=== PATIENT | male | born 1965 | race African-American/Black ===

== ENCOUNTER 2018-02-26 13:49 | Emergency (ER) | payer MEDICARE ==
[~2018-02-26] VITALS: Ht 165.1 cm; Wt 79.8 kg
[2018-02-26 14:00] VITALS: BP 156/90
--- NOTE | 2018-02-26 14:28 | PHYS DOC ---
Adult General Chief Complaint Chief Complaint: FINGER INJURY HPI HPI Patient is a 52 year old M who states that about 8 days ago he was taking laundry out of the washer and his R index finger was hyperextended and he has had pain in the finger every since with decreased ROM. He did invest in a finger splint that he has been wearing and states the ROM has improved some but since he was bringing his daughter in today for evaluation of her ankle, he decided to be seen. Review of Systems Review of Systems Constitutional: Denies fever or chills Respiratory: Denies cough or shortness of breath Cardiovascular: Denies chest pain GI: Denies abdominal pain, nausea, vomiting, bloody stools or diarrhea Musculoskeletal: Denies back pain. Reports R index finger pain Integument: Denies rash or skin lesions Neurologic: Denies headache, focal weakness or sensory changes All other systems were reviewed and found to be within normal limits, except as documented in this note. Allergies Allergies Allergies Coded Allergies Type Severity Reaction Last Updated Verified duloxetine Adverse Reaction Intermediate TREMORS, RAPID HEART RATE 02/26/18 Yes Physical Exam Physical Exam Constitutional: Well developed, well nourished, no acute distress, non-toxic appearance. Neck: Normal range of motion, no tenderness, supple, no stridor. Cardiovascular:Heart rate regular rhythm, no murmur Lungs & Thorax: Bilateral breath sounds clear to auscultation Abdomen: Bowel sounds normal, soft, no tenderness, no masses, no pulsatile masses. Skin: Warm, dry, no erythema, no rash. No contusion or erythema noted Back: No tenderness, no CVA tenderness. Extremities: R index finger pain with flexion. No deformity noted and pt can flex to about 40 degrees but then states he cannot flex further. Pulses intact, normal cap refill. Neurologic: Alert and oriented X 3, normal sensory function, no focal deficits noted. Psychologic: Affect normal, judgement normal, mood normal. Current Patient Data Vital Signs Vital Signs Date Time Temp Pulse Resp B/P (MAP) Pulse Ox O2 Delivery O2 Flow Rate FiO2 02/26/18 14:00 98.1 72 18 156/90 (112) 99 Room Air 98.1 EKG EKG [] Radiology/Procedures Radiology/Procedures Xray neg for acute osseous injury Impressions: Discussed with pt that I am concerned about a tendon injury to his R index finger with his decreased ROM. Pt placed in alumifoam splint and he was provided with ortho name and number and recommended to call for close follow up. Pt is R hand dominant and I stress importance of f/u to ensure use of his hand in future. Course & Med Decision Making Course & Med Decision Making Pertinent Labs and Imaging studies reviewed. (See chart for details) [] Dragon Disclaimer Dragon Disclaimer This electronic medical record was generated, in whole or in part, using a voice recognition dictation system. Departure Departure Impression: Primary Impression: Sprain of index finger Additional Impression: Ligament laxity Disposition: 01 HOME, SELF-CARE Condition: STABLE Referrals: DENISE RAYMOND MD Patient Instructions: Finger Sprain, [id number] Additional Instructions: finger splint, ice, rest Scripts Naproxen (NAPROSYN) 500 Mg Tablet 1 TAB PO BID, #20 TAB 1 Refill Prov: JESSI MAURICIO 02/26/18 Problem Qualifiers JESSI MAURICIO Feb 26, 2018 14:28
--- NOTE | 2018-02-26 14:57 | RAD ---
Examination: HAND RIGHT 3V History: right hand pain x1 week after lifting heavy object Comparison/Correlation: None Findings: Total 3 images of the right hand were obtained. Joint spaces are normal. No acute fracture or bone destruction. Soft tissues are normal. Bony mineralization is adequate. Impression: Normal right hand 3 view x-ray exam. Electronically signed by: Ken Bunn MD (02/26/2018 2:53 PM) [facility]
[2018-02-26] MEDS ORDERED: NAPR-683 PO (14:59)
== END 2018-02-26 15:25 | disposition home or self-care (01) ==
LOC: ER 13:49
DX: S63.690A Other sprain of right index finger, initial encounter (principal); M24.241 Disorder of ligament, right hand; Z88.8 Allergy status to other drugs, medicaments and biological substances; X50.1XXA Overexertion from prolonged static or awkward postures, initial encounter; Y93.E2 Activity, laundry; Y92.89 Other specified places as the place of occurrence of the external cause; Y99.8 Other external cause status
CPT/HCPCS: 73130; 99284

== ENCOUNTER 2018-03-13 05:14 | Emergency (ER) | payer MEDICARE ==
[~2018-03-13] VITALS: Ht 167.6 cm; Wt 79.8 kg
[~2018-03-13 05:14] MED LIST: NAPR-683 PO
--- NOTE | 2018-03-13 05:18 | PHYS DOC ---
Past Medical History Past Medical History: Diabetes-Type II, Unknown Additional Past Medical Histor: PTSD,NEUROPATHY Past Surgical History: Appendectomy Alcohol Use: None Drug Use: None Adult General Chief Complaint Chief Complaint: SKIN RASH/ABSCESS [facility] HPI Patient is a 53 year old male who presents with rash over left side of neck. He has had symptoms over the last 2 days. No fever or chills. No headaches. Denies prior history of similar symptoms. The patient does shave very frequently. He denies that he has ever had problems with pseudo-folliculitis. Review of Systems Review of Systems Constitutional: Denies fever Eyes: Denies change in visual acuity HENT: Denies nasal congestion Respiratory: Denies cough or shortness of breath Cardiovascular: No additional information not addressed in HPI GI: Denies abdominal pain Musculoskeletal: Denies back pain Integument: as documented above Neurologic: Denies headache All other systems were reviewed and found to be within normal limits, except as documented in this note. Allergies Allergies Allergies Coded Allergies Type Severity Reaction Last Updated Verified duloxetine Adverse Reaction Intermediate TREMORS, RAPID HEART RATE 02/26/18 Yes Physical Exam Physical Exam Constitutional: Well developed, well nourished, no acute distress HENT: Normocephalic, atraumatic, bilateral external ears normal Eyes: PERRLA, EOMI Neck: Normal range of motion Cardiovascular:Heart rate regular rhythm, no murmur Lungs & Thorax: Bilateral breath sounds clear to auscultation Skin: Warm, dry, no erythema, cluster of excoriated papules, now more ulcerated appearing lesions on erythematous base over left side of neck, quesada line. Additional lesions on skin over left clavicle. no vesicles Neurologic: Alert and oriented X 3 Psychologic: Affect normal Current Patient Data Vital Signs Vital Signs Date Time Temp Pulse Resp B/P (MAP) Pulse Ox O2 Delivery O2 Flow Rate FiO2 03/13/18 05:28 97.7 79 18 99 Room Air 97.7 EKG EKG [] Radiology/Procedures Radiology/Procedures [] Course & Med Decision Making Course & Med Decision Making Pertinent Labs and Imaging studies reviewed. (See chart for details) Nontoxic patient. Sx mos c/w MRSA skin infection. No systemic symptoms. No drainable abscess. Plan to d/c home with bactrim. Patient is agreeable to the plan of care. He already has f/u scheduled with PCP. Return precautions discussed. Christine Disclaimer Dragon Disclaimer This electronic medical record was generated, in whole or in part, using a voice recognition dictation system. Departure Departure Referrals: NON,STAFF (PCP) Scripts Sulfamethoxazole/Trimethoprim (BACTRIM DS TABLET) 1 Each Tablet 1 TAB PO BID, #20 TAB Prov: VAN GUAJARDO DO 03/13/18 VAN GUAJARDO DO Mar 13, 2018 05:18
[2018-03-13 05:28] VITALS: BP 159/91
[2018-03-13] MEDS ORDERED: SULF1TAB24 PO (05:32)
== END 2018-03-13 05:37 | disposition home or self-care (01) ==
LOC: ER 05:14
DX: R21 Rash and other nonspecific skin eruption (principal); E11.40 Type 2 diabetes mellitus with diabetic neuropathy, unspecified; F43.10 Post-traumatic stress disorder, unspecified; Z88.8 Allergy status to other drugs, medicaments and biological substances
CPT/HCPCS: 99283

== ENCOUNTER 2018-08-07 04:00 | Emergency (ER) | payer MEDICARE ==
[~2018-08-07] VITALS: Ht 165.1 cm; Wt 82.6 kg
[~2018-08-07 04:00] MED LIST changes: +SULF1TAB24 PO
[2018-08-07 04:38] LABS: BILIRUBIN,URINE NEGATIVE (NEG); CLARITY,URINE CLEAR; COLOR,URINE YELLOW; NITRITE,URINE NEGATIVE (NEG); PH,URINE 6.5; PROTEIN,URINE 100 mg/dL (NEG-TRACE)
[2018-08-07] MEDS ORDERED: KETOROLAC 30 MG/ML VIAL. IV ONE (04:45)
[2018-08-07] MEDS ORDERED: FAMOTIDINE 20 MG/2 ML VIAL IVP ONE (04:45)
[2018-08-07] MEDS ORDERED: IV NORMAL SALINE 1000ML BAG 1,000 ML IV ONE (04:45)
[2018-08-07] MEDS ORDERED: ONDANSETRON PF 4 MG/2 ML VIAL. IV ONE (04:45)
[2018-08-07 04:54] LABS: BACTERIA,URINE 0 /HPF (0-FEW); RBC,URINE OCC /HPF (0-2); SQUAMOUS EPITHELIAL CELL,UR FEW /LPF
[2018-08-07 05:10] LABS: BASO % 0 % (0-3); EOS % 0 % (0-3); HEMATOCRIT 41.1 % (39.0-53.0); HEMOGLOBIN 14.1 g/dL (13.0-17.5); LYMPH # 0.4 x10^3/uL (1.0-4.8); LYMPH % 7 % (24-48); MEAN CORPUSCULAR HEMOGLOBIN 30 pg (25-35); MEAN CORPUSCULAR HGB CONC 34 g/dL (31-37); MEAN CORPUSCULAR VOLUME 88 fL (79-100); MONO # 0.5 x10^3/uL (0.0-1.1); MONO % 8 % (0-9); NEUT # 5.3 x10^3uL (1.8-7.7); NEUT % 85 % (31-73); PLATELET COUNT 165 x10^3/uL (140-400); RED BLOOD COUNT 4.68 x10^6/uL (4.30-5.70); RED CELL DISTRIBUTION WIDTH 13.4 % (11.5-14.5); WHITE BLOOD COUNT 6.2 x10^3/uL (4.0-11.0)
[2018-08-07 05:14] LABS: CALCIUM 8.9 mg/dL (8.5-10.1); CREATININE 0.9 mg/dL (0.7-1.3); GFR 107.6; POTASSIUM 3.3 mmol/L (3.5-5.1)
[2018-08-07 05:18] LABS: PROTHROMBIN TIME PATIENT 12.6 SEC (11.7-14.0)
[2018-08-07 05:20] LABS: ALBUMIN 3.9 g/dL (3.4-5.0); ALBUMIN/GLOBULIN RATIO 1.1 (1.0-1.7); TOTAL BILIRUBIN 0.6 mg/dL (0.2-1.0); TOTAL PROTEIN 7.5 g/dL (6.4-8.2)
[2018-08-07 05:30] LABS: % BANDS 1 % (0-9); % EOS 1 % (0-5); % LYMPHS 13 % (24-48); % MONOS 10 % (0-10); % SEGS 75 % (35-66); PLT ESTIMATE ADEQUATE (ADEQUATE)
--- NOTE | 2018-08-07 05:41 | PHYS DOC ---
Past Medical History Past Medical History: Depression, Diabetes-Type II, Unknown Additional Past Medical Histor: PTSD,NEUROPATHY Past Surgical History: Appendectomy Additional Information: Nonsmoker Alcohol Use: Rarely Drug Use: None Adult General Chief Complaint Chief Complaint: ABDOMINAL PAIN HPI HPI 53-year-old male presents with report of right lower quadrant abdominal pain with associated nausea/vomiting/diarrhea 4 days. Denies any chest pain or shortness of breath. Denies known trauma. Denies known sick contacts. Patient denies travel outside [place]. Patient reports he last vomited approximately 15 minutes prior to arrival. Patient does report some problems with bloating. Reports history of prior appendectomy subsequent bowel obstruction. Review of Systems Review of Systems Constitutional: Denies fever or chills [] HENT: Denies nasal congestion or sore throat [] Respiratory: Denies cough or shortness of breath [] Cardiovascular: Denies chest pain or palpitations GI: Reports abdominal pain, nausea, vomiting, and diarrhea [] : Denies dysuria or hematuria [] Musculoskeletal: Denies back pain or joint pain [] Integument: Denies rash or skin lesions [] Neurologic: Denies headache, focal weakness or sensory changes [] Complete systems were reviewed and found to be within normal limits, except as documented in this note. Current Medications Current Medications Current Medications Medications (Trade) Dose Ordered Sig/[facility] Start Time Stop Time Status Last Admin Dose Admin Famotidine (Pepcid Vial) 20 mg 1X ONCE 08/07/18 04:45 08/07/18 04:46 DC 08/07/18 04:54 20 MG Ketorolac Tromethamine (Toradol 30mg Vial) 15 mg 1X ONCE 08/07/18 04:45 08/07/18 04:46 DC 08/07/18 04:53 15 MG Ondansetron HCl (Zofran) 4 mg 1X ONCE 08/07/18 04:45 08/07/18 04:46 DC 08/07/18 04:53 4 MG Sodium Chloride 1,000 ml @ 1,000 mls/hr 1X ONCE 08/07/18 04:45 08/07/18 05:44 08/07/18 04:53 1,000 MLS/HR Allergies Allergies Allergies Coded Allergies Type Severity Reaction Last Updated Verified duloxetine Adverse Reaction Intermediate TREMORS, RAPID HEART RATE 02/26/18 Yes Physical Exam Physical Exam Constitutional: Well developed, well nourished, no acute distress, non-toxic appearance. [] HENT: Normocephalic, atraumatic, oropharynx moist Eyes: Conjunctiva normal, no discharge. [] Neck: Normal range of motion, no tenderness, supple Cardiovascular: Heart rate regular rhythm, no murmur [] Lungs & Thorax: Bilateral breath sounds clear to auscultation [] Abdomen: Soft, diffuse abdominal pain, mild/moderate distention Skin: Warm, dry, no erythema, no rash. [] Back: No tenderness, no CVA tenderness. [] Extremities: No tenderness, ROM intact, no edema. [] Neurologic: Alert and oriented X 3, normal motor function, normal sensory function, no focal deficits noted. [] Psychologic: Affect normal, judgement normal, mood normal. [] Current Patient Data Vital Signs Vital Signs Date Time Temp Pulse Resp B/P (MAP) Pulse Ox O2 Delivery O2 Flow Rate FiO2 08/07/18 04:56 83 18 145/90 (108) 94 08/07/18 04:05 97.7 Room Air 97.7 Lab Values Laboratory Tests Test 08/07/18 04:26 08/07/18 04:45 Urine Collection Type Unknown Urine Color Yellow Urine Clarity Clear Urine pH 6.5 Urine Specific [place] >=1.030 Urine Protein 100 mg/dL (NEG-TRACE) Urine Glucose (UA) 500 mg/dL (NEG) Urine Ketones (Stick) 15 mg/dL (NEG) Urine Blood Negative (NEG) Urine Nitrite Negative (NEG) Urine Bilirubin Negative (NEG) Urine Urobilinogen Dipstick 1.0 mg/dL (0.2 mg/dL) Urine Leukocyte Esterase Negative (NEG) Urine RBC Occ /HPF (0-2) Urine WBC 1-4 /HPF (0-4) Urine Squamous Epithelial Cells Few /LPF Urine Bacteria 0 /HPF (0-FEW) Urine Mucus Marked /LPF White Blood Count 6.2 x10^3/uL (4.0-11.0) Red Blood Count 4.68 x10^6/uL (4.30-5.70) Hemoglobin 14.1 g/dL (13.0-17.5) Hematocrit 41.1 % (39.0-53.0) Mean Corpuscular Volume 88 fL (79-100) Mean Corpuscular Hemoglobin 30 pg (25-35) Mean Corpuscular Hemoglobin Concent 34 g/dL (31-37) Red Cell Distribution Width 13.4 % (11.5-14.5) Platelet Count 165 x10^3/uL (140-400) Neutrophils (%) (Auto) 85 % (31-73) H Lymphocytes (%) (Auto) 7 % (24-48) L Monocytes (%) (Auto) 8 % (0-9) Eosinophils (%) (Auto) 0 % (0-3) Basophils (%) (Auto) 0 % (0-3) Neutrophils # (Auto) 5.3 x10^3uL (1.8-7.7) Lymphocytes # (Auto) 0.4 x10^3/uL (1.0-4.8) L Monocytes # (Auto) 0.5 x10^3/uL (0.0-1.1) Eosinophils # (Auto) 0.0 x10^3/uL (0.0-0.7) Basophils # (Auto) 0.0 x10^3/uL (0.0-0.2) Segmented Neutrophils % 75 % (35-66) H Band Neutrophils % 1 % (0-9) Lymphocytes % 13 % (24-48) L Monocytes % 10 % (0-10) Eosinophils % 1 % (0-5) Platelet Estimate Adequate (ADEQUATE) Prothrombin Time 12.6 SEC (11.7-14.0) Prothrombin Time INR 1.0 (0.8-1.1) PTT 26 SEC (24-38) Sodium Level 140 mmol/L (136-145) Potassium Level 3.3 mmol/L (3.5-5.1) L Chloride Level 100 mmol/L (98-107) Carbon Dioxide Level 31 mmol/L (21-32) Anion Gap 9 (6-14) Blood Urea Nitrogen 14 mg/dL (8-26) Creatinine 0.9 mg/dL (0.7-1.3) Estimated GFR (Cockcroft-Gault) 107.6 BUN/Creatinine Ratio 16 (6-20) Glucose Level 213 mg/dL (70-99) H Lactic Acid Level 1.3 mmol/L (0.4-2.0) Calcium Level 8.9 mg/dL (8.5-10.1) Total Bilirubin 0.6 mg/dL (0.2-1.0) Aspartate Amino Transferase (AST) 19 U/L (15-37) Alanine Aminotransferase (ALT) 34 U/L (16-63) Alkaline Phosphatase 55 U/L (46-116) Total Protein 7.5 g/dL (6.4-8.2) Albumin 3.9 g/dL (3.4-5.0) Albumin/Globulin Ratio 1.1 (1.0-1.7) Lipase 43 U/L (73-393) L Laboratory Tests 08/07/18 04:45 Laboratory Tests 08/07/18 04:45 EKG EKG [] Radiology/Procedures Radiology/Procedures [] Course & Med Decision Making Course & Med Decision Making Pertinent Lab studies reviewed. (See chart for details) Patient presents with report of diffuse abdominal pain with associated nausea/ vomiting/diarrhea. Abdomen soft, however, diffusely tender. Symptomatic treatment provided. IV fluid hydration also given. Labs obtained and posted to chart. CT abdomen/pelvis pending at this time. Sign out given to Dr. Carias for further evaluation and final disposition. Discussed current findings and plan with patient, who acknowledges understanding and agreement. Dragon Disclaimer Dragon Disclaimer This electronic medical record was generated, in whole or in part, using a voice recognition dictation system. Departure Departure Impression: Primary Impression: Abdominal pain Additional Impression: Nausea vomiting and diarrhea Referrals: YANCY GENTILE MD (PCP) Problem Qualifiers Primary Impression: Abdominal pain Abdominal location: generalized Qualified Codes: R10.84 - Generalized abdominal pain JAVIER ABAD DO Aug 07, 2018 05:41
[2018-08-07] MEDS ORDERED: IOHEXOL 300 MG/ML 100ML VIAL. IV ONE (06:45)
[2018-08-07] MEDS ORDERED: IOHEXOL 240 MG/ML 50ML VIAL. PO ONE (06:45)
[2018-08-07] MEDS ORDERED: CONTRAST GIVEN. MC PRN (06:45)
--- NOTE | 2018-08-07 07:47 | RAD ---
CT abdomen and pelvis with IV and oral contrast Clinical Indication: Diffuse abdominal pain, nausea, vomiting, diarrhea COMPARISON: None. TECHNIQUE: Multiple contiguous axial images were obtained throughout the abdomen and pelvis with the use of IV and oral contrast. Axial images were reformatted into coronal and sagittal planes. 75 mL Omni 300 was administered. Abdomen findings: The liver, gallbladder, spleen, pancreas, and adrenal glands are unremarkable. The kidneys are unremarkable. There is no significant mesenteric or retroperitoneal adenopathy identified. There is no evidence of free intraperitoneal fluid or pneumoperitoneum. Portions of the bowel are decompressed which limits evaluation for wall thickening. Visualized portions of the bowel are otherwise grossly unremarkable. The appendix is not identified consistent with given history of appendectomy. Pelvis findings: The urinary bladder is underdistended limiting evaluation. There is no significant pelvic ascites. No significant iliac or inguinal adenopathy is identified. No acute osseous abnormality. Mild multilevel degenerative changes of the visualized spine. IMPRESSION: No acute intra-abdominal or intrapelvic process identified. PQRS Compliance Statement: One or more of the following individualized dose reduction techniques were utilized for this examination: 1. Automated exposure control 2. Adjustment of the mA and/or kV according to patient size 3. Use of iterative reconstruction technique Electronically signed by: Cooper Bailey MD (08/07/2018 7:44 AM) [facility]
[2018-08-07 08:00] VITALS: BP 123/79
[2018-08-07] MEDS ORDERED: IOHEXOL 300 MG/ML 100ML VIAL. ONE (15:15)
[2018-08-07] MEDS ORDERED: IOHEXOL 240 MG/ML 50ML VIAL. ONE (15:15)
== END 2018-08-07 08:23 | disposition home or self-care (01) ==
LOC: ER 04:00
DX: R10.31 Right lower quadrant pain (principal); R11.2 Nausea with vomiting, unspecified; R19.7 Diarrhea, unspecified; E11.40 Type 2 diabetes mellitus with diabetic neuropathy, unspecified; Z90.89 Acquired absence of other organs; Z88.8 Allergy status to other drugs, medicaments and biological substances
CPT/HCPCS: 36415; 74177; 80053; 81001; 83605; 83690; 85007; 85025; 85610; 85730; 96361; 96374; 96375; 99284; J1885; J2405; J3490; J7030; Q9966; Q9967

== ENCOUNTER 2018-08-28 14:26 | Emergency (ER) | payer MEDICARE ==
[~2018-08-28] VITALS: Ht 165.1 cm; Wt 81.6 kg
[2018-08-28] MEDS ORDERED: IBUPROFEN 400 MG TABLET. PO ONE (15:15)
--- NOTE | 2018-08-28 15:29 | RAD ---
CHEST PA LATERAL History: COUGH AND CHEST PAIN X 2 DAYS Comparison: None. Findings: 2 views of the chest are submitted. There is no infiltrate, pneumothorax, or effusion. The cardiac silhouette is within normal limits in size. The trachea is in the midline. No acute osseous abnormality is identified. Impression: 1. There is no evidence of acute cardiopulmonary disease. Electronically signed by: Wilbur Harrison MD (08/28/2018 3:26 PM) [facility]
--- NOTE | 2018-08-28 15:52 | PHYS DOC ---
Past Medical History Past Medical History: Depression, Diabetes-Type II, High Cholesterol, Other Additional Past Medical Histor: PTSD,NEUROPATHY, Depression Past Surgical History: Appendectomy Additional Information: never smoker Alcohol Use: None Drug Use: None Adult General Chief Complaint Chief Complaint: MULTIPLE COMPLAINTS HPI HPI Patient is a 53-year-old male presents today with a cough and runny nose and sneezing and congestion and feeling hot and cold for 2 days. He also has redness to the right that has discharged when he wakes up in the morning. States that symptoms are not improving and that was concerned about pneumonia. Has been taking theraflu and unknown over the counter cough medications at home with some relief. He states that he has facial pressure with 9/10 in severity. Review of Systems Review of Systems Constitutional: Reports fever or chills [] Eyes: Denies change in visual acuity. Report eye redness (R) and discharge. HENT: Reports nasal congestion, sneezing, runny nose, denies sore throat [] Respiratory: Reports cough and minor shortness of breath [] Cardiovascular: Reports pain when he coughs, denies palpitations or syncope. GI: Denies abdominal pain, nausea, vomiting, bloody stools or diarrhea [] : Denies dysuria or hematuria [] Musculoskeletal: Denies back pain or joint pain [] Integument: Denies rash or skin lesions [] Neurologic: Denies headache, focal weakness or sensory changes [] Endocrine: Denies polyuria or polydipsia [] Complete systems were reviewed and found to be within normal limits, except as documented in this note. Current Medications Current Medications Current Medications Medications (Trade) Dose Ordered Sig/[place] Start Time Stop Time Status Last Admin Dose Admin Ibuprofen (Motrin) 600 mg 1X ONCE 08/28/18 15:15 08/28/18 15:16 DC 08/28/18 15:29 600 MG lyrical, tramadol, metformin, lantus, risperidone, and wellbutrin. Allergies Allergies Allergies Coded Allergies Type Severity Reaction Last Updated Verified duloxetine Adverse Reaction Intermediate TREMORS, RAPID HEART RATE 02/26/18 Ye s Physical Exam Physical Exam Constitutional: Well developed, well nourished, no acute distress, non-toxic appearance. [] HENT: Normocephalic, atraumatic, redness to the right conjunctiva, oropharynx moist, no oral exudates, redness to turbinates. [] Eyes: PERRLA, EOMI, conjunctiva red on right, no discharge. [] Neck: No stridor. [] Cardiovascular:Heart rate regular rhythm, no murmur [] Lungs & Thorax: Bilateral breath sounds clear to auscultation [] Abdomen: Bowel sounds normal, soft, no tenderness, no masses, no pulsatile masses. [] Skin: Warm, dry, no erythema, no rash. [] Back: No tenderness, no CVA tenderness. [] Extremities: No tenderness, no cyanosis, no clubbing, ROM intact, no edema. [] Neurologic: Alert and oriented X 3, normal motor function. [] Psychologic: Affect normal, judgement normal, mood normal. [] Current Patient Data Vital Signs Vital Signs Date Time Temp Pulse Resp B/P (MAP) Pulse Ox O2 Delivery O2 Flow Rate FiO2 08/28/18 14:36 98.3 125 24 117/75 (89) 97 Room Air 98.3 Rechecked vital signs on reassessment with patient HR is 89, O2 Saturations of 97%, RR of 16. Lab Values Laboratory Tests Test 08/28/18 15:30 08/28/18 15:33 Influenza Type A Antigen Negative (NEGATIVE) Influenza Type B Antigen Negative (NEGATIVE) Glucose (Fingerstick) 333 mg/dL (70-99) H EKG EKG [] Radiology/Procedures Radiology/Procedures []PATIENT: VAN ZARAGOZA KAOUNT: [id number]#: [id number] : 1965 LOCATION: ER AGE: 53 SEX: M EXAM STATUS: REG ER ORD. PHYSICIAN: JAVIER MARIE APRN REASON: cough x 2 days; r/o pneuomonia PROCEDURE: CHEST PA & LATERAL CHEST PA LATERAL History: COUGH AND CHEST PAIN X 2 DAYS Comparison: None. Findings: 2 views of the chest are submitted. There is no infiltrate, pneumothorax, or effusion. The cardiac silhouette is within normal limits in size. The trachea is in the midline. No acute osseous abnormality is identified. Impression: 1. There is no evidence of acute cardiopulmonary disease. Electronically signed by: Wilbur Harrison MD (08/28/2018 3:26 PM) [facility] Course & Med Decision Making Course & Med Decision Making Pertinent Labs and Imaging studies reviewed. (See chart for details) []1500: Discussed with patient his symptoms and now will check for pneumonia and flu, check his blood sugar and that he seems to have viral conjunctivitis. Will order ibuprofen for pain medicine chest x-ray flu and blood sugar. He was agreeable to this. 1554: Discussed with patient results. Will d/c patient home to follow up with PCP. Discussed with patient signs and symptoms to come back such as increased SOB, CP, fevers at home. Will treat for conjunctivitis and the URI. Patient is agreeable to plan of care. Dragon Disclaimer Dragon Disclaimer This electronic medical record was generated, in whole or in part, using a voice recognition dictation system. Departure Departure Disposition: HOME, SELF-CARE Condition: STABLE Referrals: YANCY GENTILE MD (PCP) Patient Instructions: Conjunctivitis (Viral and Bacterial), Upper Respiratory Infection, Adult Additional Instructions: Please follow up with your PCP. Take medications as prescribed. Drink plenty of fluid and get plenty of rest. Come back to ER if symptoms worsen. Watch your sugars at home. Scripts Fluticasone Propionate (Flonase Allergy Relief) 9.9 Ml [place].susp 2 SPRAYS NS DAILY for 30 Days, #1 BOTTLE Prov: JAVIER MARIE APRN 08/28/18 Cetirizine Hcl (ZYRTEC) 10 Mg Tablet 1 TAB PO DAILY, #30 TAB 0 Refills Prov: JAVIER MARIE APRN 08/28/18 Polymyxin B Sulf/Trimethoprim (POLYMYXIN B-TMP EYE DROPS) 10 Ml Drops 1 DROP RIGHTEYE QID for 7 Days, #10 ML Prov: JAVIER MARIE APRN 08/28/18 JAVIER MARIE APRN Aug 28, 2018 15:52
[2018-08-28 16:00] LABS: INFLUENZA A PATIENT NEGATIVE (NEGATIVE); INFLUENZA B PATIENT NEGATIVE (NEGATIVE)
[2018-08-28] MEDS ORDERED: POLY10DR3 RIGHTEYE (16:01)
[2018-08-28] MEDS ORDERED: CETI10TA22 PO (16:01)
[2018-08-28] MEDS ORDERED: FLUT9.9S NS (16:01)
[2018-08-28 16:15] VITALS: BP 117/76
== END 2018-08-28 16:15 | disposition home or self-care (01) ==
LOC: ER 14:26
DX: R05 Cough (principal); R09.89 Other specified symptoms and signs involving the circulatory and respiratory systems; R09.81 Nasal congestion; R06.7 Sneezing; E78.00 Pure hypercholesterolemia, unspecified; E11.9 Type 2 diabetes mellitus without complications; Z88.8 Allergy status to other drugs, medicaments and biological substances
CPT/HCPCS: 71046; 82962; 87804; 99285-25